=== PATIENT | female | born 1945 | race Caucasian/White ===

== ENCOUNTER 2022-03-29 19:13 | Emergency (ER) | payer MEDICARE, OTHER, SELFPAY ==
[2022-03-29 19:15] VITALS: BP 151/81; PULSE 71; RESP 24; TEMP 36.7; O2SAT 99; BMI 51.3
--- NOTE | 2022-03-29 19:29 | EDS_ITS ---
HPI HPI - Fall History of Present Illness Chief Complaint: Fall Detail of Chief Complaint: Fall with injury to right hip and back Informant: patient Narrative Narrative: Patient presents to the emergency department after sustaining a fall today. Patient states that her lost his balance and fell onto her feet which caused her to fall onto her right hip and back onto hardwood floor. She did not strike her head. No loss of consciousness. She denies neck pain. Patient complains of pain in the right hip and a hard time bearing weight secondary to pain. Patient has no medical history. She is not on blood thinners. PFSH PFSH Allergy/AdvReac Type Severity Reaction Status Date / Time cephalexin [From Keflex] Allergy Rash Verified 03/29/22 19:18 hydromorphone [From Dilaudid] AdvReac Vomiting Verified 03/29/22 19:18 Social History Smoking Status: Never smoker ROS ROS ED Review of Systems ROS Unobtainable: other Constitutional Constitutional ED: Reports lethargy; Denies chills, fever(s), sweats or weight loss Eyes Eyes: Denies blurry vision, change in vision or diplopia ENT ENT ED: Denies rhinorrhea or sore throat Cardiovascular Cardiovascular: Reports chest pain and racing heartbeat; Denies orthopnea Respiratory/Chest Respiratory/Chest: Reports dyspnea and dyspnea on exertion; Denies cough, orthopnea or sputum Gastrointestinal Gastrointestinal: Denies abdominal pain, diarrhea, nausea or vomiting Genitourinary Genitourinary ED: Denies dysuria, hematuria or urinary frequency Musculoskeletal Musculoskeletal: Reports back pain and other Details: Right hip pain, back pain ; Denies arthralgias, myalgias or neck pain Integumentary Denies abscess, Abrasions or rash Neurologic Neurologic: Denies headache(s) or weakness Psychiatric Psychiatric: Denies anxiety, depression or suicidal thoughts Endocrine Endocrinology: Denies polydipsia, polyphagia or polyuria Hematologic/Lymphatic Hematologic/Lymphatic: Denies easy bleeding, easy bruising or lymphadenopathy Allergic/Immunologic Allergic/Immunologic ED: Denies mouth swelling, tongue swelling or urticaria EXAM Physical Exam Const Vital Signs: 03/29/22 19:15 03/29/22 20:25 Temperature 98.1 F Temperature Source Temporal Pulse Rate 71 76 Respiratory Rate 24 H 17 Blood Pressure 151/81 H 150/75 H Blood Pressure Mean 104 100 Pulse Ox 99 98 Oxygen Delivery Method Room Air Room Air Positive well nourished and well developed General Appearance ED: well developed and NAD HEENT Reports TM's clear and moist mucous membranes normocephalic and atraumatic; Negative for trauma or tenderness Tympanic Membrane ED: Yes TM's clear Eyes PERRL and EOMs intact bilaterally General Eye ED: Negative for pale conjunctiva or scleral icterus Neck no lymphadenopathy, supple and no JVD General: Negative for tenderness Chest Wall inspection of chest normal and palpation of chest normal Chest: Negative for tenderness Resp normal respiratory effort and clear to auscultation bilaterally Effort and Inspection: Negative for respiratory distress or pain with movement Auscultation: Negative for rhonchi, wheezes or diminished lung sounds Cardio regular rate, regular rhythm, S1 normal heart sound, S2 normal heart sound and no murmurs Peripheral Pulses: pulses 2+ throughout GI normal to inspection, nondistended, normoactive bowel sounds, soft to palpation, non-tender, non-distended and no masses Back/Spine no CVA tenderness Back/Spine Narrative: Patient has tenderness to palpation over the lower lumbar spine and sacrum. No bony step-offs noted. No ecchymosis or bruising noted. Extremity Extremity Narrative: Right hip-patient has tenderness palpation over the right hip. She she is able to flex at the hip and does not have significant discomfort with logrolling of the hip. There is no shortening or rotational deformity noted. She is neurovascular intact. General Extremety ED: Negative for edema General Extremity: Negative for edema Neuro oriented x3, CN's II-XII intact bilaterally, no sensory deficits noted and gait normal Sensorium / Orientation: awake, alert, oriented to person, oriented to place and oriented to time Motor Exam: strength 5/5 throughout and strength abnormal Psych mental status grossly normal Skin no rashes or lesions noted and no wounds MDM MDM MDM Narrative Medical decision making narrative: Patient had x-rays of her lumbar spine as well as right hip and pelvis and read by radiology and myself as no acute fractures. Patient was given a [place] p.o. Patient was ambulated. Patient will be discharged to home and advised to follow-up with primary care physician in 3 to 5 days. Radiography Diagnostic Testing: Clinical Impression(s) from Imaging Studies Hip/Pelvis X-Ray 03/29/22 19:35 IMPRESSION: No acute findings. Electronically Signed: Alex Isbell MD at 19:51 EDT , Lumbar Spine X-Ray 03/29/22 19:35 IMPRESSION: Degenerative changes of the spine, as detailed above. Electronically Signed: Alex Isbell MD at 19:51 EDT , 4 view x-rays of right hip and pelvis obtained interpreted by myself no acute fractures. Radiology in agreement. Three-view x-rays of lumbar spine obtained interpreted by myself as no acute fractures. Radiology noted degenerative changes otherwise no fractures. Discharge Plan Triage Chief Complaint: Fall Other Complaint: Lower Extremity Injury ED Provider: Marcello Bradley Dx/Rx/DC Orders Clinical Impression: Fall, Contusion of back, Contusion of hip, right Instructions: ED Back Contusion, ED Hip Contusion Primary Care Provider: Care Physician,No Primary Referrals: Care Physician,No Primary [Primary Care Provider] - 3-5 Days if not improving Disposition Disposition: Home, Self Care
--- NOTE | 2022-03-29 19:35 | RAD_ITS ---
STUDY: X-RAY - PELVIS AND RIGHT HIP REASON FOR EXAM: Female, 77 years old. Pain fall TECHNIQUE: XR Hip Unilateral with Pelvis when performed; 2-3 Views COMPARISON: None. FINDINGS: There is a non-specific bowel gas pattern. Normal visualized soft tissue structures. There are degenerative changes of the lumbar spine. Normal bilateral iliac wings, sacroiliac joints and visualized sacrum. Normal bilateral superior and inferior pubic rami. Normal pubic symphysis. Normal bilateral ischial tuberosities. Normal visualized femoral head. Normal acetabulum. Normal hip joint. RAD/HIP, UNI W/ Pelvis 2-3 Views IMPRESSION: No acute findings. Electronically Signed: Alex Isbell MD at 19:51 EDT ,
--- NOTE | 2022-03-29 19:35 | RAD_ITS ---
STUDY: X-RAY - LUMBAR SPINE REASON FOR EXAM: Female, 77 years old. fallTechnologist Notes FELL ONTO HER MAKING HER FALL ONTO RIGHT HIP , PAIN TECHNIQUE: XR Spine Lumbar 2 or 3 Views COMPARISON: None FINDINGS: Normal lumbar lordosis. There is no substantial scoliosis. There is a normal alignment of the vertebrae. There are multiple metallic clips in the right upper quadrant. This is consistent for a cholecystectomy. Vacuum disc phenomenon at L5-S1. There is multilevel endplate spondylosis of the lumbar vertebrae. There is multi-level degenerative disc disease with multi-level disc space narrowing. There are atherosclerotic vascular calcifications. The soft tissue structures are unremarkable. RAD/Lumbar Spine 2 or 3 Views IMPRESSION: Degenerative changes of the spine, as detailed above. Electronically Signed: Alex Isbell MD at 19:51 EDT ,
[2022-03-29] MEDS: HYDROcodone Bitartrate/Apap 5/325 Tablet PO (20:24)
[2022-03-29 20:25] VITALS: BP 150/75; PULSE 76; RESP 17; O2SAT 98
--- NOTE | 2022-03-29 20:56 | ED.RN ---
patient able to ambulate with support and will borrow a walker from her [id number]
[2022-03-29 20:57] VITALS: BP 157/60; PULSE 73; RESP 15; O2SAT 99
== END 2022-03-29 20:59 | disposition home or self-care (01) ==
PROVIDERS: Emergency Provider Emergency Medicine; Visit Provider Emergency Medicine
DX: S20.229A Contusion of unspecified back wall of thorax, initial encounter (principal); S70.01XA Contusion of right hip, initial encounter; W19.XXXA Unspecified fall, initial encounter
CPT/HCPCS: 72100; 73502; 99283